=== PATIENT | female | born 1955 | race Caucasian/White ===

== ENCOUNTER 2018-04-07 08:29 | Emergency (ER) | payer OTHER ==
[~2018-04-07] VITALS: Ht 162.6 cm; Wt 104.3 kg
--- NOTE | 2018-04-07 08:41 | ED GENERAL ADULT ---
History of Present Illness General Chief Complaint: Lower Extremity Problems Stated Complaint: INCREASING R HIP PAIN S/P MECHANICAL FALL 2MO AGO Source: patient Exam Limitations: no limitations Vital Signs & Intake/Output Vital Signs & Intake/Output Vital Signs Date Time Temp Pulse Resp B/P B/P Pulse O2 O2 Flow FiO2 Mean Ox Delivery Rate 04/07 0835 97.5 88 20 149/110 97 Room Air Allergies Coded Allergies: Penicillins (UNKNOWN 04/07/18) acetaminophen (From PERCOCET) (GI 04/07/18) oxycodone (From PERCOCET) (GI 04/07/18) Reconcile Medications Amlodipine Besylate 5 MG TABLET 1 TAB PO DAILY HEART (Reported) Atorvastatin Calcium 10 MG TABLET 1 TAB PO DAILY CHOLESTEROL (Reported) Lisinopril/Hydrochlorothiazide (Lisinopril-Hctz 20-25 MG Tab) 20 MG-25 MG TABLET 1 TAB PO DAILY HEART (Reported) Potassium Chloride 20 MEQ TAB.ER.PRT 1 TAB PO DAILY SUPPLEMENT (Reported) Triage Note: PT C/O MECHANICAL FALL ONTO GRASS 2 MONTHS AGO INJURING RIGHT HIP. STATES IT DIDN'T HURT AT FIRST BUT IT HAS BECOME MORE PAINFUL. STATES SOMETIMES FEELS THE PAIN ALL THE WAY DOWN SHINBONE. TAKES TYLENOL FOR PAIN WITH SOME RELIEF Triage Nurses Notes Reviewed? yes Onset: Gradual Duration: day(s): Timing: recent history HPI: 04/07/18 62-year-old female presents to the emergency department for ongoing right sided buttock pain that radiates down the right leg. It is worse when she moves her right hip. She said she fell in November. She also has a history of peripheral vascular disease. She has seen Dr. Velazquez. She hss had a stent placed in the left leg. She is also had ultrasounds of both lower extremities that were negative for DVT. Now she has pain in the right hip and it's worse when she moves her leg. Past History Travel History Traveled to [place] past 21 day No Medical History Any Pertinent Medical History? see below for history Cardiovascular: hypertension, hyperlipidemia Surgical History Surgical History: none (vascular stent left leg) Psychosocial History What is your primary language Brazilian Tobacco Use: Never used ETOH Use: occasional use Illicit Drug Use: denies illicit drug use Family History Hx Contributory? No Review of Systems Review of Systems Constitutional: Denies: fever. EENTM: Reports: no symptoms. Respiratory: Denies: short of breath. Cardiovascular: Reports: no symptoms. GI: Reports: no symptoms. Genitourinary: Reports: no symptoms. Musculoskeletal: Reports: see HPI. Skin: Reports: see HPI. Neurological/Psychological: Reports: no symptoms. Hematologic/Endocrine: Reports: see HPI. Immunologic/Allergic: Reports: no symptoms. Physical Exam Physical Exam General Appearance: alert, awake, anxious, mild distress Head: atraumatic, normal appearance Eyes: Bilateral: normal appearance, PERRL, EOMI. Ears, Nose, Throat: normal ENT inspection Neck: normal inspection, supple Respiratory: normal breath sounds, chest non-tender, no respiratory distress Cardiovascular: regular rate/rhythm Peripheral Pulses: 4+ dorsalis pedis (R), 4+ dorsalis pedis (L) Gastrointestinal: soft, non-tender Back: decreased range of motion Extremities: tenderness Neurologic/Psych: no motor/sensory deficits, awake, alert, oriented x 3 Skin: intact, normal color Core Measures ACS in differential dx? No CVA/TIA Diagnosis: No Sepsis Present: No Sepsis Focused Exam Completed? No Progress Differential Diagnoses I considered the following diagnoses in my evaluation of the patient: [Arthritis , avascular necrosis, fracture, sciatica] Plan of Care: Orders Procedure Date/time Status XRY-LUMBOSACRAL SPINE AP & LAT 04/07 911 Active XRY-HIP 2-3 VIEWS, RIGHT 04/07 911 Active Initial ED EKG: none Departure Departure Disposition: HOME OR SELF CARE Condition: Stable Clinical Impression Primary Impression: Arthritis Referrals: Wagner HAYES,JConstantine J (PCP/Family) Departure Forms: Customer Survey General Discharge Information Comments X-rays negative for fracture. She has no swelling to the leg is only pain in the right hip. And is been ongoing for weeks. She will follow-up with orthopedics and take ibuprofen for pain.IMPRESSION: 1. Diffuse osteopenia. No acute fracture of the lumbosacral spine or right hip. 2. Mild degenerative disc disease at L2-L3 and L3-L4. 3. Moderate facet arthropathy throughout the mid and lower lumbar spine. 4. Mild degenerative change in the right hip joint. DICTATED BY: Erica HAYES,Nalini Camacho DATE/TIME DICTATED:04/07/18950 [employer]ELOPMENT CONSULTANT:[facility]ERS DATE/TIME TRANSCRIBED:04/07/18950 CONFIDENTIAL, DO NOT COPY WITHOUT APPROPRIATE AUTHORIZATION. <Electronically signed in Other Vendor System> SIGNED BY: Nalini Maldonado MD [id number] Critical Care Note Critical Care Note Critical Care Time: non-applicable
[2018-04-07] MEDS ORDERED: AMLODIPINE BESYL5 M1 PO (08:47)
[2018-04-07] MEDS ORDERED: POTASSIUM CHLO20 ME2 PO (08:47)
[2018-04-07] MEDS ORDERED: ATORVASTATIN CA10 M1 PO (08:48)
[2018-04-07] MEDS ORDERED: LISINOPRIL-HCT1 EAC1 PO (08:48)
--- NOTE | 2018-04-07 09:59 | RADIOLOGY REPORT ---
EXAMINATION: XR HIP, RIGHT CLINICAL INFORMATION: Right hip pain. COMPARISON: None TECHNIQUE: Two views of the right hip. 3 views of the lumbosacral spine. FINDINGS: Lumbosacral spine: There is a convex left lumbar scoliosis with diffuse osteopenia and no acute fracture or dislocation. There is mild disc space narrowing at the L2-L3 and L3-L4 levels with associated mild vertebral spurring. Moderate facet arthropathy is seen throughout the mid and lower lumbar spine. The sacroiliac joints bilaterally are intact and unremarkable. A left iliac vascular stent is in place. Right hip: Diffuse osteopenia. No acute fracture or dislocation. Mild degenerative change with superior joint space narrowing and mild cystic changes seen. No joint calcifications noted. IMPRESSION: 1. Diffuse osteopenia. No acute fracture of the lumbosacral spine or right hip. 2. Mild degenerative disc disease at L2-L3 and L3-L4. 3. Moderate facet arthropathy throughout the mid and lower lumbar spine. 4. Mild degenerative change in the right hip joint.
[2018-04-07] MEDS ORDERED: IBUPROFEN400 M1 PO (10:33)
[2018-04-07 10:40] VITALS: BP 134/88
== END 2018-04-07 10:41 ==
LOC: ERH 08:29
DX: M19.90 Unspecified osteoarthritis, unspecified site (principal); M25.551 Pain in right hip; M79.604 Pain in right leg; I10 Essential (primary) hypertension; E78.5 Hyperlipidemia, unspecified
CPT/HCPCS: 72100; 73502-RT